=== PATIENT | female | born 1975 ===

== ENCOUNTER 2022-01-13 12:54 | Emergency (ER) | payer OTHER ==
[~2022-01-13] VITALS: Ht 175.3 cm; Wt 74.8 kg
[2022-01-13] MEDS ORDERED: PEPCID AC20 MG PO ×2 (13:22→18:28)
[2022-01-13] MEDS ORDERED: PROTONIX40 MG PO (13:23)
[2022-01-13] MEDS ORDERED: INTESTINEX680 M1 PO (18:28)
== END 2022-01-13 19:32 | disposition home or self-care (01) ==
LOC: ER 12:54
DX: K52.9 Noninfective gastroenteritis and colitis, unspecified (principal); Z88.1 Allergy status to other antibiotic agents

== ENCOUNTER 2022-08-05 08:03 | Outpatient (CLI) | payer OTHER ==
[~2022-08-05 08:03] MED LIST: INTESTINEX680 M1 PO; PEPCID AC20 MG PO; PROTONIX40 MG PO
== END 2022-08-05 08:30 | disposition home or self-care (01) ==
LOC: TOM 08:03
DX: R10.9 Unspecified abdominal pain (principal); K76.89 Other specified diseases of liver; N60.11 Diffuse cystic mastopathy of right breast; N60.12 Diffuse cystic mastopathy of left breast

== ENCOUNTER 2024-10-26 12:59 | Outpatient (CLI) | payer OTHER | END 2024-10-26 13:01 | disposition home or self-care (01) | LOC: MAMO-SONO 12:59 | PROVIDERS: ATTEND Obstetrics & Gynecology Gynecology | DX: N60.11 Diffuse cystic mastopathy of right breast (principal); N60.12 Diffuse cystic mastopathy of left breast ==